=== PATIENT | male | born 1990 | race Caucasian/White ===

== ENCOUNTER 2022-10-28 20:35 | Emergency (ER) | payer OTHER ==
[~2022-10-28] VITALS: Ht 193 cm; Wt 108.9 kg
[2022-10-28 20:35] VITALS: BP 133/84
--- NOTE | 2022-10-28 20:35 | NUR ---
SEEN AND EXAMINED BY BHARATH
--- NOTE | 2022-10-28 20:40 | NUR ---
TO LOBBY VIA WHEELCHAIR
[2022-10-28] MEDS ORDERED: LORazepam 1 MG TAB PO ONE (20:50)
--- NOTE | 2022-10-28 20:55 | NUR ---
MEDICATED PER [facility] ORDER, TOLERATED WELL
[2022-10-28] MEDS ORDERED: LIB25 PO (21:20)
[2022-10-28 22:10] VITALS: BP 133/84
--- NOTE | 2022-10-28 22:10 | NUR ---
Patient discharged with v/s stable. Written and verbal after care instructions given and explained. Patient alert, oriented and verbalized understanding of instructions. Ambulatory with steady gait. All questions addressed prior to discharge. ID band removed. Patient advised to follow up with PMD. Rx of LIBRIUM given. Patient educated on indication of medication including possible reaction and side effects. Opportunity to ask questions provided and answered.
== END 2022-10-28 22:10 | disposition home or self-care (01) ==
LOC: MED 20:35
DX: F10.239 Alcohol dependence with withdrawal, unspecified (principal); F41.9 Anxiety disorder, unspecified; Z79.899 Other long term (current) drug therapy
CPT/HCPCS: 99283